=== PATIENT | male | born 1960 | race Caucasian/White ===

== ENCOUNTER 2021-11-16 14:30 | Inpatient (IN) | payer MEDICARE ==
[2021-11-16] MEDS ORDERED: methylPREDNISolone SOD SUCCI 125 MG/2 ML VIAL IV STA (15:04)
[2021-11-16] MEDS ORDERED: IPRATROPIUM-ALBUTEROL 3 ML NEB INHALATION STA (15:04)
--- NOTE | 2021-11-16 15:08 | ED ---
SOB HPI - General Source: patient, RN notes reviewed Mode of arrival: wheelchair Limitations: no limitations - History of Present Illness MD Complaint: shortness of breath <Fabien Lange - Last Filed: 11/16/21 16:03> <Denisse Kirby - Last Filed: 11/16/21 19:30> - General Chief Complaint: Shortness of Breath Stated Complaint: URSULA Time Seen by Provider: 11/16/21 14:44 - History of Present Illness Initial Comments: 61-year-old male with a history of childhood asthma and slight history of COPD he states who quit smoking 4 years ago who says today that he started developing shortness of breath this morning progressively worse exertional dyspnea and dyspnea at rest. No fevers chills nausea vomiting slight cough but no phlegm. He states he has similar presentation about a month ago at [facility] in [facility]. He was at that time treated with breathing treatments and steroids and got better. No other current complaints or modifying factors no chest pain reported. (Fabien Lange) - Related Data Home Medications Medication Instructions Recorded Confirmed Levocetirizine Dihydrochloride 5 mg PO HS 11/16/21 11/16/21 [Xyzal] Montelukast Sodium [Singulair] 10 mg PO HS 11/16/21 11/16/21 Omeprazole 20 mg PO DAILY 11/16/21 11/16/21 Potassium Chloride ER [K-Dur 20] 20 meq PO DAILY 11/16/21 11/16/21 hydroCHLOROthiazide 25 mg PO DAILY 11/16/21 11/16/21 Allergies Allergy/AdvReac Type Severity Reaction Status Date / Time almond Allergy Anaphylaxis Verified 11/16/21 16:16 [place] nut Allergy Anaphylaxis Verified 11/16/21 16:16 shellfish derived Allergy Anaphylaxis Verified 11/16/21 16:16 Review of Systems ROS Other: All systems not noted in ROS Statement are negative. <Fabien Lange - Last Filed: 11/16/21 16:03> ROS Other: All systems not noted in ROS Statement are negative. <Denisse Kirby - Last Filed: 11/16/21 19:30> ROS Statement: Those systems with pertinent positive or pertinent negative responses have been documented in the HPI. Past Medical History Past Medical History: GERD/Reflux, Hypertension History of Any Multi-Drug Resistant Organisms: None Reported Past Surgical History: Back Surgery Additional Past Surgical History / Comment(s): spinal fusion Past Psychological History: Anxiety Smoking Status: Former smoker Past Alcohol Use History: Daily Past Drug Use History: None Reported <Fabien Lange - Last Filed: 11/16/21 16:03> General Exam Limitations: no limitations General appearance: alert, anxious, in distress Head exam: Present: atraumatic, normocephalic, normal inspection Eye exam: Present: normal appearance, PERRL, EOMI. Absent: scleral icterus, conjunctival injection, periorbital swelling ENT exam: Present: normal exam, mucous membranes moist Neck exam: Present: normal inspection, full ROM, other. Absent: tenderness, meningismus, lymphadenopathy Respiratory exam: Present: wheezes, decreased breath sounds (Surgery or bruits). Absent: respiratory distress, rales, rhonchi, stridor Cardiovascular Exam: Present: normal rhythm, tachycardia, normal heart sounds. Absent: systolic murmur, diastolic murmur, rubs, gallop, clicks GI/Abdominal exam: Present: soft, normal bowel sounds. Absent: distended, tenderness, guarding, rebound, rigid Extremities exam: Present: normal inspection, full ROM, normal capillary refill. Absent: tenderness, pedal edema, joint swelling, calf tenderness Back exam: Present: normal inspection Neurological exam: Present: alert, oriented X3, CN II-XII intact Psychiatric exam: Present: normal affect, normal mood Skin exam: Present: warm, dry, intact, normal color. Absent: rash <Fabien Lange - Last Filed: 11/16/21 16:03> - General Exam Comments Initial Comments: This is a well-developed well-nourished awake alert oriented 3 male (NazarioFabien) Course <NazarioFabien - Last Filed: 11/16/21 16:03> Vital Signs 11/16/21 11/16/21 11/16/21 14:37 15:25 15:27 Temperature 97.9 F Pulse Rate 112 H 93 Respiratory 24 22 Rate Blood Pressure 185/107 O2 Sat by Pulse 99 Oximetry 11/16/21 11/16/21 11/16/21 15:36 16:55 18:14 Temperature Pulse Rate 97 97 118 H Respiratory 20 18 Rate Blood Pressure 164/104 174/110 O2 Sat by Pulse 98 98 Oximetry - Reevaluation(s) Reevaluation #1: 11/16/21 15:34 Patient did have what appeared to be a vagal episode when he try to reposition himself in this hospital stretcher. He became diaphoretic and weak monitor however did not show any change in heart rate blood pressure or pulse ox. Repeat EKG showed a sinus rhythm a 94. Interval 177 QRS duration 94 QT since QTC 370/4:30 evidence of some left axis deviation this appears be consistent with the initial EKG. 11/16/21 15:36 Evaluation the patient time revealed him to be awake alert oriented 3 no chest pain he continues with shortness of breath he was diaphoretic initially pulses are equal bilaterally no evidence of focal deficits. Patient was encouraged to breathing through his nose out from his mouth as he was hyperventilating somewhat. (Fabien Lange) Reevaluation #2: 11/16/21 16:03 Patient's case will be endorsed to Dr. Kirby at our shift change (Fabien Lange) Medical Decision Making - EKG Data -: EKG Interpreted by Me EKG shows normal: sinus rhythm <Fabien Lange - Last Filed: 11/16/21 16:03> - Lab Data Result diagrams: 11/16/21 15:22 11/16/21 15:22 <Denisse Kirby - Last Filed: 11/16/21 19:30> - Medical Decision Making Patient care was signed out to me by Dr. Lange, patient is a 61-year-old male who presented with some shortness of breath, upon my evaluation the patient was quite shaky he received some Ativan which she's had helped with the shaking. He does admit to drinking 2 glasses of whiskey and sometimes a third drink per night though denies having ever been through alcohol withdrawal. Patient with persistent shaking, hypertension not relieved by oral medications. Patient does not feel comfortable driving himself home in this condition. This time we will plan to keep the patient in observation for further management. This plan was discussed with Denisse from [facility] hospitalist group who accepts admission. (Denisse Kirby) - Lab Data Lab Results 11/16/21 11/16/21 11/16/21 Range/Units 15:22 15: 15: WBC 5.7 (3.8-10.6) k/uL RBC 5.67 (4.30-5.90) m/uL Hgb 17.1 (13.0-17.5) gm/dL Hct 51.6 (39.0-53.0) % MCV 91.0 (80.0-100.0) fL MCH 30.1 (25.0-35.0) pg MCHC 33.1 (31.0-37.0) g/dL RDW 12.9 (11.5-15.5) % Plt Count 212 (150-450) k/uL MPV 8.1 Neutrophils % 58 % Lymphocytes % 27 % Monocytes % 10 % Eosinophils % 0 % Basophils % 1 % Neutrophils # 3.3 (1.3-7.7) k/uL Lymphocytes # 1.5 (1.0-4.8) k/uL Monocytes # 0.6 (0-1.0) k/uL Eosinophils # 0.0 (0-0.7) k/uL Basophils # 0.1 (0-0.2) k/uL PT 10.9 (9.0-12.0) sec INR 1.0 (<1.2) APTT 24.7 (22.0-30.0) sec D-Dimer 0.41 (<0.60) mg/L FEU Sodium 137 (137-145) mmol/L Potassium 3.3 L (3.5-5.1) mmol/L Chloride 101 (98-107) mmol/L Carbon Dioxide 20 L (22-30) mmol/L Anion Gap 16 mmol/L BUN 9 (9-20) mg/dL Creatinine 0.76 (0.66-1.25) mg/dL Est GFR (CKD-EPI)AfAm >90 (>60 ml/min/1.73 sqM) Est GFR (CKD-EPI)NonAf >90 (>60 ml/min/1.73 sqM) Glucose 108 H (74-99) mg/dL Lactic Ac Sepsis Rflx Plasma Lactic Acid Domenic (0.7-2.0) mmol/L Calcium 9.4 (8.4-10.2) mg/dL Magnesium 1.6 (1.6-2.3) mg/dL Total Bilirubin 0.7 (0.2-1.3) mg/dL AST 160 H (17-59) U/L ALT 68 H (4-49) U/L Alkaline Phosphatase 178 H (38-126) U/L Troponin I (0.000-0.034) ng/mL NT-Pro-B Natriuret Pep pg/mL Total Protein 8.6 H (6.3-8.2) g/dL Albumin 5.0 (3.5-5.0) g/dL 11/16/21 11/16/21 11/16/21 Range/Units 15:22 15:22 15:22 WBC (3.8-10.6) k/uL RBC (4.30-5.90) m/uL Hgb (13.0-17.5) gm/dL Hct (39.0-53.0) % MCV (80.0-100.0) fL MCH (25.0-35.0) pg MCHC (31.0-37.0) g/dL RDW (11.5-15.5) % Plt Count (150-450) k/uL MPV Neutrophils % % Lymphocytes % % Monocytes % % Eosinophils % % Basophils % % Neutrophils # (1.3-7.7) k/uL Lymphocytes # (1.0-4.8) k/uL Monocytes # (0-1.0) k/uL Eosinophils # (0-0.7) k/uL Basophils # (0-0.2) k/uL PT (9.0-12.0) sec INR (<1.2) APTT (22.0-30.0) sec D-Dimer (<0.60) mg/L FEU Sodium (137-145) mmol/L Potassium (3.5-5.1) mmol/L Chloride (98-107) mmol/L Carbon Dioxide (22-30) mmol/L Anion Gap mmol/L BUN (9-20) mg/dL Creatinine (0.66-1.25) mg/dL Est GFR (CKD-EPI)AfAm (>60 ml/min/1.73 sqM) Est GFR (CKD-EPI)NonAf (>60 ml/min/1.73 sqM) Glucose (74-99) mg/dL Lactic Ac Sepsis Rflx Plasma Lactic Acid Domenic 4.3 H* (0.7-2.0) mmol/L Calcium (8.4-10.2) mg/dL Magnesium (1.6-2.3) mg/dL Total Bilirubin (0.2-1.3) mg/dL AST (17-59) U/L ALT (4-49) U/L Alkaline Phosphatase (38-126) U/L Troponin I <0.012 (0.000-0.034) ng/mL NT-Pro-B Natriuret Pep 16 pg/mL Total Protein (6.3-8.2) g/dL Albumin (3.5-5.0) g/dL 11/16/21 Range/Units 16:04 WBC (3.8-10.6) k/uL RBC (4.30-5.90) m/uL Hgb (13.0-17.5) gm/dL Hct (39.0-53.0) % MCV (80.0-100.0) fL MCH (25.0-35.0) pg MCHC (31.0-37.0) g/dL RDW (11.5-15.5) % Plt Count (150-450) k/uL MPV Neutrophils % % Lymphocytes % % Monocytes % % Eosinophils % % Basophils % % Neutrophils # (1.3-7.7) k/uL Lymphocytes # (1.0-4.8) k/uL Monocytes # (0-1.0) k/uL Eosinophils # (0-0.7) k/uL Basophils # (0-0.2) k/uL PT (9.0-12.0) sec INR (<1.2) APTT (22.0-30.0) sec D-Dimer (<0.60) mg/L FEU Sodium (137-145) mmol/L Potassium (3.5-5.1) mmol/L Chloride (98-107) mmol/L Carbon Dioxide (22-30) mmol/L Anion Gap mmol/L BUN (9-20) mg/dL Creatinine (0.66-1.25) mg/dL Est GFR (CKD-EPI)AfAm (>60 ml/min/1.73 sqM) Est GFR (CKD-EPI)NonAf (>60 ml/min/1.73 sqM) Glucose (74-99) mg/dL Lactic Ac Sepsis Rflx Y Plasma Lactic Acid Domenic (0.7-2.0) mmol/L Calcium (8.4-10.2) mg/dL Magnesium (1.6-2.3) mg/dL Total Bilirubin (0.2-1.3) mg/dL AST (17-59) U/L ALT (4-49) U/L Alkaline Phosphatase (38-126) U/L Troponin I (0.000-0.034) ng/mL NT-Pro-B Natriuret Pep pg/mL Total Protein (6.3-8.2) g/dL Albumin (3.5-5.0) g/dL - EKG Data EKG Comments: Sinus tachycardia occasional PVCs rate 102. Interval 168 QRS duration 95 daily since QTC 350/[address]-T wave changes (Fabien Lange) Disposition <Fabien Lange - Last Filed: 11/16/21 16:03> <Denisse Kirby - Last Filed: 11/16/21 19:30> Clinical Impression: COPD exacerbation, HTN (hypertension) Disposition: ADMITTED IP TO THIS HOSP Condition: Stable Referrals: None,Stated [Primary Care Provider] - 1-2 days
[2021-11-16 15:49] LABS: Basophils # (A) 0.1 k/uL (0-0.2); Basophils % (A) 1 %; Eosinophils % (A) 0 %; HCT 51.6 % (39.0-53.0); HGB 17.1 gm/dL (13.0-17.5); Lymphocytes # (A) 1.5 k/uL (1.0-4.8); Lymphocytes % (A) 27 %; MCH 30.1 pg (25.0-35.0); MCHC 33.1 g/dL (31.0-37.0); Mean Platelet Volume 8.1; Monocytes # (A) 0.6 k/uL (0-1.0); Monocytes % (A) 10 %; Neutrophils # (A) 3.3 k/uL (1.3-7.7); Neutrophils % (A) 58 %; Platelet Count 212 k/uL (150-450); RBC 5.67 m/uL (4.30-5.90); RDW 12.9 % (11.5-15.5); WBC 5.7 k/uL (3.8-10.6)
[2021-11-16 16:01] LABS: Partial Thromboplastin Time 24.7 sec (22.0-30.0); Prothrombin Time 10.9 sec (9.0-12.0)
[2021-11-16] MEDS ORDERED: LORazepam 2 MG/ML INJ IV STA (16:05)
[2021-11-16 16:11] LABS: ALT 68 U/L (4-49); AST 160 U/L (17-59); African American GFR (CKD) >90 (>60 ml/min/1.73 sqM); Alkaline Phosphatase 178 U/L (38-126); Anion Gap 16 mmol/L; Blood Urea Nitrogen 9 mg/dL (9-20); Calcium 9.4 mg/dL (8.4-10.2); Carbon Dioxide 20 mmol/L (22-30); Chloride 101 mmol/L (98-107); Glucose 108 mg/dL (74-99); Magnesium 1.6 mg/dL (1.6-2.3); Non-African American GFR(CKD) >90 (>60 ml/min/1.73 sqM); Potassium 3.3 mmol/L (3.5-5.1); Sodium 137 mmol/L (137-145); Total Bilirubin 0.7 mg/dL (0.2-1.3); Total Protein 8.6 g/dL (6.3-8.2)
[2021-11-16] MEDS ORDERED: SODIUM CHLORIDE 0.9% 1,000 ML IV STA (16:13)
--- NOTE | 2021-11-16 16:19 | XR ---
EXAMINATION TYPE: XR chest 2V DATE OF EXAM: 11/16/2021 3:49 PM COMPARISON: None TECHNIQUE: XR chest 2V Frontal and lateral views of the chest. CLINICAL INDICATION:Male, 61 years old with history of difficulty breathing; FINDINGS: Lungs/Pleura: There is no evidence of pleural effusion, focal consolidation, or pneumothorax. Pulmonary vascularity: Unremarkable. Heart/mediastinum: Cardiomediastinal silhouette is unremarkable. Musculoskeletal: No acute osseous pathology. There is lower spine fixation hardware is present. IMPRESSION: No acute cardiopulmonary disease/process.
[2021-11-16] MEDS ORDERED: LORazepam 1 MG TAB PO STA (18:24)
[2021-11-16] MEDS ORDERED: cloNIDine HCL 0.1 MG TAB PO STA (18:24)
[2021-11-16] MEDS ORDERED: NALOXONE 0.4 MG/ML 1 ML VIAL IV PRN (19:22)
[2021-11-16] MEDS ORDERED: LORazepam 2 MG/ML INJ IV PRN ×3 (19:24)
[2021-11-16] MEDS: THIAMINE 100 MG TAB PO SCH (20:08)
[2021-11-16] MEDS ORDERED: cloNIDine HCL 0.2 MG TAB PO STA (20:54)
[2021-11-17] MEDS: THIAMINE 100 MG TAB PO SCH ×2 (08:41→16:42)
[2021-11-17] MEDS ORDERED: hydroCHLOROthiazide 25 MG TAB PO SCH (10:30)
[2021-11-17] MEDS ORDERED: PANTOPRAZOLE 40 MG/10 ML VIAL IVP SCH (10:30)
[2021-11-17] MEDS: SODIUM CHLORIDE 0.9% 1,000 ML IV SCH ×2 (11:24→17:48)
[2021-11-17] MEDS: POTASSIUM CHLORIDE ER 20 MEQ TAB.ER PO SCH ×2 (11:28→16:43)
[2021-11-17] MEDS: predniSONE 20 MG TAB PO SCH (11:31)
[2021-11-17] MEDS: LOSARTAN 50 MG TAB PO SCH (11:31)
--- NOTE | 2021-11-17 14:08 | P.HPIM ---
History of Present Illness H&P Date: 11/17/21 This is a 61-year-old male presents with a history of childhood asthma and a history of COPD he states he quit smoking 4 years ago, patient presents with shortness of breath as a progressively worse. He also complains of exertional dyspnea and dyspnea at rest. He denies fever chills. Patient was treated about one month ago at [facility] in [place] received breathing treatments and steroids and states that he improved after that. Chest x-ray showing no acute cardio pulmonary disease. Chest x-ray shows sinus rhythm heart rate 94, QT interval 430. Labs on admission showed white count 5.7, potassium 3.3, CO2 20, lactic acid on admission 4.3 is now trending down to 2.6, liver enzymes are elevated, troponin negative, BNP 16. D-Dimer 0.41. Patient is afebrile, heart rate 92, blood pressure 164/101, 98% room air. He is currently CIWA protocol, he did receive oral clonidine for his blood pressure and 1 dose of IV steroids. He also received a 1 L fluid bolus. Patient is a history of COPD, GERD, hypertension, is a daily drinker and former smoker. He states he only drinks on the weekends and not during the week. He underwent full work up abdominal CT he states at [place] as well. He has never seen a tower supervisor, only ENT and states he has also had plastic surgery on his nose. REVIEW OF SYSTEMS: CONSTITUTIONAL: No fever, no malaise, no fatigue. HEENT: No recent visual problems or hearing problems. Denied any sore throat. CARDIOVASCULAR: No chest pain, orthopnea, PND, no palpitations, no syncope. PULMONARY: Reports shortness of breath at rest and with exertion. GASTROINTESTINAL: No diarrhea, no nausea, no vomiting, no abdominal pain. NEUROLOGICAL: No headaches, no weakness, no numbness. HEMATOLOGICAL: Denies any bleeding or petechiae. GENITOURINARY: Denies any burning micturition, frequency, or urgency. MUSCULOSKELETAL/RHEUMATOLOGICAL: Denies any joint pain, swelling, or any muscle pain. ENDOCRINE: Denies any polyuria or polydipsia. The rest of the 14-point review of systems is negative. PHYSICAL EXAMINATION: GENERAL: The patient is alert and oriented x3, not in any acute distress. Well developed, well nourished. HEENT: Pupils are round and equally reacting to light. EOMI. No scleral icterus. No conjunctival pallor. Normocephalic, atraumatic. No pharyngeal erythema. No thyromegaly. CARDIOVASCULAR: S1 and S2 present. No murmurs, rubs, or gallops. PULMONARY: Chest is clear to auscultation, no wheezing or crackles. Lungs are diminished. ABDOMEN: Soft, nontender, distended, normoactive bowel sounds. No palpable organomegaly. MUSCULOSKELETAL: No joint swelling or deformity. EXTREMITIES: No cyanosis, clubbing, or pedal edema. NEUROLOGICAL: Gross neurological examination did not reveal any focal deficits. SKIN: No rashes. Assesesment and Plan Mild acute COPD exacerbation Acute alcohol withdrawl, continues on CIWA Transaminitis, possibly from chronic alcohol use Lactic acidosis Hypokalemia possibly for dehydration, patient was outside working, states he was drinking alcohol over the weekend Hypertension GERD History of chronic alcohol abuse History of smoking, quit 4 years ago GI Prophylaxis DVT Prophyalxis Full Code Plan Abominal ultrasound ordered Follow up Liver enzymes Hold hydrochlorothiazide IV fluids Continue duonebs, budesonide Losartan has been started The impression and plan of care has been dictated by Cindy Lange Nurse Practitioner as directed. Dr. Chacha MD I have performed a history and physical examination and medical decision making of this patient, discussed the same with the dictator, and agree with the dictators assessment and plan as written, documented as a scribe. Based on total visit time, I have performed more than 50% of this visit. Past Medical History Past Medical History: COPD, GERD/Reflux, Hypertension History of Any Multi-Drug Resistant Organisms: None Reported Past Surgical History: Back Surgery Additional Past Surgical History / Comment(s): spinal fusion, bilateral cataract surgery Past Psychological History: Anxiety Smoking Status: Former smoker Past Alcohol Use History: Daily Past Drug Use History: None Reported Medications and Allergies Home Medications Medication Instructions Recorded Confirmed Type Levocetirizine Dihydrochloride 5 mg PO HS 11/16/21 11/16/21 History [Xyzal] Montelukast Sodium [Singulair] 10 mg PO HS 11/16/21 11/16/21 History Omeprazole 20 mg PO DAILY 11/16/21 11/16/21 History Potassium Chloride ER [K-Dur 20] 20 meq PO DAILY 11/16/21 11/16/21 History hydroCHLOROthiazide 25 mg PO DAILY 11/16/21 11/16/21 History Allergies Allergy/AdvReac Type Severity Reaction Status Date / Time almond Allergy Anaphylaxis Verified 11/16/21 16:16 [place] nut Allergy Anaphylaxis Verified 11/16/21 16:16 shellfish derived Allergy Anaphylaxis Verified 11/16/21 16:16 Physical Exam Vitals: Vital Signs Temp Pulse Pulse Resp BP BP Pulse Ox 11/17/21 08:01 18 11/17/21 07:00 97.4 F L 92 18 164/101 98 11/17/21 01:49 97.7 F 75 18 167/87 98 11/16/21 22:54 97.4 F L 75 20 149/102 97 11/16/21 21:48 84 20 149/85 98 11/16/21 21:32 84 20 165/97 11/16/21 20:52 88 20 156/110 98 11/16/21 20:36 92 20 168/107 97 11/16/21 20:28 103 H 22 172/110 98 11/16/21 20:00 105 H 24 182/116 98 11/16/21 18:14 118 H 18 174/110 98 11/16/21 16:55 97 20 164/104 98 11/16/21 15:36 97 11/16/21 15:27 93 11/16/21 15:25 22 11/16/21 14:37 97.9 F 112 H 24 185/107 99 Intake and Output 11/16/21 11/17/21 11/17/21 22:59 06:59 14:59 Intake Total 120 Balance 120 Intake: Oral 120 Other: Voiding Method Toilet # Voids 1 Weight 82.1 kg Results CBC & Chem 7: 11/16/21 15:22 11/16/21 15:22 Labs: Abnormal Lab Results - Last 24 Hours (Table) 11/16/21 11/16/21 11/16/21 Range/Units 15:22 15:22 19:54 Potassium 3.3 L (3.5-5.1) mmol/L Carbon Dioxide 20 L (22-30) mmol/L Glucose 108 H (74-99) mg/dL Plasma Lactic Acid Domenic 4.3 H* 3.1 H* (0.7-2.0) mmol/L AST 160 H (17-59) U/L ALT 68 H (4-49) U/L Alkaline Phosphatase 178 H (38-126) U/L Total Protein 8.6 H (6.3-8.2) g/dL 11/17/21 Range/Units 00:07 Potassium (3.5-5.1) mmol/L Carbon Dioxide (22-30) mmol/L Glucose (74-99) mg/dL Plasma Lactic Acid Domenic 2.6 H* (0.7-2.0) mmol/L AST (17-59) U/L ALT (4-49) U/L Alkaline Phosphatase (38-126) U/L Total Protein (6.3-8.2) g/dL Assessment and Plan Time with Patient: Less than 30
[2021-11-17] MEDS ORDERED: SODIUM CHLORIDE 0.9% 1,000 ML IV ONE (16:36)
[2021-11-17] MEDS ORDERED: IPRATROPIUM-ALBUTEROL 3 ML NEB INHALATION PRN (16:37)
[2021-11-17] MEDS: BUDESONIDE 0.5 MG/2 ML NEBU INHALATION SCH (20:29)
[2021-11-17] MEDS: IPRATROPIUM-ALBUTEROL 3 ML NEB INHALATION SCH (20:30)
[2021-11-17] MEDS ORDERED: MONTELUKAST 10 MG TAB PO SCH (21:00)
[2021-11-18 03:20] VITALS: RESP 18
[2021-11-18 07:29] VITALS: BP 192/90; TEMP 98.1
[2021-11-18] MEDS ORDERED: PANTOPRAZOLE 40 MG TABLET PO SCH (07:30)
[2021-11-18] MEDS: BUDESONIDE 0.5 MG/2 ML NEBU INHALATION SCH (07:38)
[2021-11-18] MEDS: IPRATROPIUM-ALBUTEROL 3 ML NEB INHALATION SCH ×2 (07:40→11:21)
--- NOTE | 2021-11-18 08:11 | US ---
EXAMINATION TYPE: US abdomen complete DATE OF EXAM: 11/17/2021 COMPARISON: NONE CLINICAL HISTORY: elevated liver enzymes. Exam done portable EXAM MEASUREMENTS: Liver Length: 16.4 cm Gallbladder Wall: 0.2 cm CBD: 0.4 cm Spleen: 10.5 cm Right Kidney: 11.2 x 5.2 x 6.3 cm Left Kidney: 12.6 x 6.2 x 5.3 cm Pancreas: visualized portions wnl, limited by overlying midline bowel gas Liver: wnl Gallbladder: wnl Evidence for sonographic Hauser's sign: no CBD: visualized portions wnl, limited by overlying bowel gas Spleen: wnl Right Kidney: wnl Left Kidney: wnl Upper IVC: wnl Abd Aorta: wnl The liver is homogenous with slightly increased parenchymal echogenicity which may suggest mild hepat ic steatosis. No definite hepatic focal lesion. The intrahepatic portion of the IVC and proximal abd ominal aorta are within normal limits. There is no evidence of cholelithiasis. Common bile duct is unremarkable yet suboptimally visualized. The visualized portions of the pancreas are homogenous, ye t partially obscured. The spleen is unremarkable. Kidneys are symmetric and free of hydronephrosis. No renal lesions are seen. IMPRESSION: Increased hepatic parenchymal echogenicity which may suggest mild hepatic steatosis, please correlate with liver function tests.
[2021-11-18] MEDS: THIAMINE 100 MG TAB PO SCH (08:36)
[2021-11-18] MEDS: LOSARTAN 50 MG TAB PO SCH (08:36)
[2021-11-18] MEDS: predniSONE 20 MG TAB PO SCH (08:36)
[2021-11-18] MEDS ORDERED: POTASSIUM CHLORIDE ER 20 MEQ TAB.ER PO SCH (09:00)
[2021-11-18 09:41] LABS: African American GFR (CKD) 112.8 (60.0-200.0); Albumin 4.7 g/dL (3.8-4.9); Albumin/Globulin Ratio 1.6 (1.60-3.17); Anion Gap 12.3 mmol/L (10.00-18.00); BUN/Creat Ratio 14.82 Ratio (12.00-20.00); Blood Urea Nitrogen 11.4 mg/dL (9.0-27.0); Calcium 9.5 mg/dL (8.7-10.3); Carbon Dioxide 28.6 mmol/L (20.0-27.5); Non-African American GFR(CKD) 97.3 (60.0-200.0); Potassium 3.3 mmol/L (3.5-5.5); Total Bilirubin 1.4 mg/dL (0.30-1.20); Total Protein 7.7 g/dL (6.2-8.2)
[2021-11-18] MEDS ORDERED: LACTULOSE 20 GM/30 ML CUP PO PRN (11:08)
[2021-11-18] MEDS ORDERED: ALPRAZolam 0.25 MG TAB PO PRN (11:09)
[2021-11-18] MEDS ORDERED: POTASSIUM CHLORIDE ER 20 MEQ TAB.ER PO STA (11:26)
[2021-11-18 12:26] VITALS: PULSE 70
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
== END 2021-11-18 13:09 | disposition home or self-care (01) | DRG 191 ==
LOC: EC 14:30 → 6NMEDSUR 19:22 → OBSVTOIN 11-17 14:04
PROVIDERS: ADMIT Hospitalist; ATTEND Hospitalist
PROC: HZ2ZZZZ Detoxification Services for Substance Abuse Treatment (ICD-10-PCS; principal; 2021-11-17)
DX: J44.1 Chronic obstructive pulmonary disease with (acute) exacerbation (principal); E87.2 Acidosis; F10.239 Alcohol dependence with withdrawal, unspecified; I10 Essential (primary) hypertension; R00.0 Tachycardia, unspecified; R55 Syncope and collapse; R74.01 Elevation of levels of liver transaminase levels; E86.0 Dehydration; E87.6 Hypokalemia; F41.9 Anxiety disorder, unspecified; G25.0 Essential tremor; K21.9 Gastro-esophageal reflux disease without esophagitis; K76.0 Fatty (change of) liver, not elsewhere classified; Z79.899 Other long term (current) drug therapy; Z87.09 Personal history of other diseases of the respiratory system; Z87.891 Personal history of nicotine dependence; Z98.1 Arthrodesis status; Z91.018 Allergy to other foods; Z91.013 Allergy to seafood
CPT/HCPCS: 36415; 71046; 76700; 80053; 83605; 83735; 83880; 84484; 85025; 85379; 85610; 85730; 93005; 94640; 96361; 96374; 96375; 96376; 99285